=== PATIENT | female | born 1985 | race African-American/Black ===

== ENCOUNTER 2017-12-02 05:49 | Observation (INO) | payer MEDICAID ==
[~2017-12-02] VITALS: Ht 170.2 cm; Wt 86.6 kg
[2017-12-02 06:16] VITALS: BP 123/77
== END 2017-12-02 10:15 | disposition home or self-care (01) ==
LOC: 4S 05:49
PROVIDERS: ADMIT Obstetrics & Gynecology; ATTEND Obstetrics & Gynecology
DX: O26.853 Spotting complicating pregnancy, third trimester (principal); O21.2 Late vomiting of pregnancy; Z3A.36 36 weeks gestation of pregnancy
CPT/HCPCS: 59025; 76811; 80307 ×8; 80349; G0378

== ENCOUNTER 2017-12-16 02:24 | Inpatient (IN) | payer MEDICAID ==
[~2017-12-16] VITALS: Ht 170.2 cm; Wt 85.3 kg
[2017-12-16] MEDS ORDERED: OXYTOCIN 30 UNITS/LACT RINGERS 500 ML IV PRN (03:04)
[2017-12-16] MEDS ORDERED: RINGERS SOLUTION,LACTATED 1,000 ML IV PRN (03:04)
[2017-12-16] MEDS ORDERED: OXYTOCIN 20 UNITS/LACT RINGERS 1,000 ML IV ONE (03:04)
[2017-12-16] MEDS ORDERED: RINGERS SOLUTION,LACTATED 1,000 ML IV SCH (03:04)
[2017-12-16] MEDS ORDERED: FentaNYL CITRATE-PF 100 MCG/2 ML VIAL IVP PRN (03:15)
[2017-12-16] MEDS ORDERED: METOCLOPRAMIDE HCL 5 MG/ML 2 ML VIAL IVP PRN (03:15)
[2017-12-16] MEDS ORDERED: CITRIC ACID/SODIUM CITRATE 30 ML SOLUTION UDCUP PO PRN (03:15)
[2017-12-16] MEDS ORDERED: AMPICILLIN SODIUM 2 GM/NS 100 ML IV ONE (03:30)
[2017-12-16 03:33] LABS: BASOPHILS # (AUTO) 0.04 K/uL (0.00-0.20); BASOPHILS % (AUTO) 0.4 % (0.0-2.0); EOSINOPHILS % (AUTO) 0.87 % (1.0-6.0); HEMATOCRIT 38.4 % (36-46); HEMOGLOBIN 12.4 g/dL (12.0-16.0); LYMPHOCYTES # (AUTO) 2.1 K/uL (1.0-4.8); LYMPHOCYTES % (AUTO) 19.4 % (22.0-44.0); MEAN CORPUSCULAR HEMOGLOBIN 28.5 pg (26.0-34.0); MEAN CORPUSCULAR HGB CONC 32.4 G/dL (31.0-37.0); MEAN CORPUSCULAR VOLUME 88 fL (80-100); MONOCYTES # (AUTO) 0.7 K/uL (0.1-1.0); MONOCYTES % (AUTO) 6.6 % (2.0-9.0); NEUTROPHILS % (AUTO) 72.7 % (40.0-70.0); PLATELET COUNT (AUTO)-OB 445 K/uL (150-450); RED BLOOD CELL COUNT(AUTO) 4.37 MIL/uL (4.00-5.20); RED CELL DISTRIBUTION WIDTH 15.1 % (11.5-14.5)
[2017-12-16] MEDS ORDERED: ROPIVACAINE HCL 0.2% 100 ML ED ONE (03:45)
[2017-12-16] MEDS ORDERED: LIDOCAINE HCL/PF 2% 5 ML VIAL ONE (03:45)
[2017-12-16] MEDS ORDERED: FentaNYL/BUPIV 0.125%/NS/PF 200 ML ED PRN (04:06)
[2017-12-16] MEDS ORDERED: ONDANSETRON HCL 4 MG/2 ML VIAL IVP PRN (04:15)
[2017-12-16] MEDS ORDERED: DiphenhydrAMINE HCL 50 MG/ML VIAL IVP PRN (04:15)
[2017-12-16] MEDS ORDERED: NALBUPHINE HCL 10 MG/ML VIAL IVP PRN (04:15)
[2017-12-16 05:25] LABS: RUBELLA SCREEN (IGG) IMMUNE (IMMUNE)
[2017-12-16] MEDS ORDERED: OXYTOCIN 20 UNITS/LACT RINGERS 1,000 ML IV SCH (06:04)
[2017-12-16] MEDS ORDERED: MAGNESIUM HYDROXIDE SUSPENSION 30 ML UDCUP PO PRN (06:15)
[2017-12-16] MEDS ORDERED: MEASLES/MUMPS/RUBELLA VACCINE, LIVE 0.5 ML/VIAL SQ ONE (06:15)
[2017-12-16] MEDS ORDERED: LANOLIN 7 GM OINTMENT TP PRN (06:15)
[2017-12-16] MEDS ORDERED: GLYCERIN/WITCH HAZEL LEAF 40 PADS JAR TP PRN (06:15)
[2017-12-16] MEDS ORDERED: SENNA/DOCUSATE SODIUM 187-50 MG TABLET PO PRN (06:15)
[2017-12-16] MEDS ORDERED: BENZOCAINE 20%/MENTHOL 56 GM SPRAY CANISTER TP PRN (06:15)
[2017-12-16] MEDS ORDERED: AMPICILLIN SODIUM 1 GM/NS 50 ML IV SCH (07:30)
[2017-12-16 07:33] VITALS: BP 91/51
[2017-12-16] MEDS ORDERED: OXYGEN THERAPY IH SCH (08:00)
[2017-12-16] MEDS: IBUPROFEN 600 MG TABLET PO PRN ×2 (09:08→18:05)
[2017-12-16] MEDS ORDERED: INFLUENZA VIRUS VACCINE QVS 2017-18 (3YR+)/PF 60 MCG/0.5 ML SYRINGE IM ONE (10:15)
[2017-12-16] MEDS: ACETAMINOPHEN/CODEINE 300-30 MG TABLET PO PRN ×2 (14:28→19:45)
[2017-12-17] MEDS: IBUPROFEN 600 MG TABLET PO PRN ×2 (00:11→10:09)
[2017-12-17 07:13] LABS: BASOPHILS # (AUTO) 0.05 K/uL (0.00-0.20); BASOPHILS % (AUTO) 0.4 % (0.0-2.0); EOSINOPHILS # (AUTO) 0.21 K/uL (0.00-0.70); HEMATOCRIT 34.5 % (36-46); HEMOGLOBIN 11.2 g/dL (12.0-16.0); LYMPHOCYTES # (AUTO) 2.2 K/uL (1.0-4.8); LYMPHOCYTES % (AUTO) 18.4 % (22.0-44.0); MEAN CORPUSCULAR HEMOGLOBIN 28.9 pg (26.0-34.0); MEAN CORPUSCULAR HGB CONC 32.4 G/dL (31.0-37.0); MEAN CORPUSCULAR VOLUME 89 fL (80-100); MONOCYTES # (AUTO) 0.6 K/uL (0.1-1.0); MONOCYTES % (AUTO) 5.1 % (2.0-9.0); NEUTROPHILS % (AUTO) 74.4 % (40.0-70.0); PLATELET COUNT (AUTO)-OB 392 K/uL (150-450); RED BLOOD CELL COUNT(AUTO) 3.87 MIL/uL (4.00-5.20); RED CELL DISTRIBUTION WIDTH 15.2 % (11.5-14.5)
[2017-12-17] MEDS ORDERED: IBUP-2071 PO (09:01)
[2017-12-17] MEDS: ACETAMINOPHEN/CODEINE 300-30 MG TABLET PO PRN (12:49)
== END 2017-12-17 13:25 | disposition home or self-care (01) | DRG 560 ==
LOC: 4S 02:24 → OBSVTOIN 02:24
PROVIDERS: ADMIT Obstetrics & Gynecology; ATTEND Obstetrics & Gynecology
PROC: 10E0XZZ Delivery of Products of Conception, External Approach (ICD-10-PCS; principal; 2017-12-16)
PROC: 3E0R3BZ Introduction of Anesthetic Agent into Spinal Canal, Percutaneous Approach (ICD-10-PCS; 2017-12-16)
PROC: 00HU33Z Insertion of Infusion Device into Spinal Canal, Percutaneous Approach (ICD-10-PCS; 2017-12-16)
PROC: 3E0234Z Introduction of Serum, Toxoid and Vaccine into Muscle, Percutaneous Approach (ICD-10-PCS; 2017-12-16)
DX: O69.81X0 Labor and delivery complicated by cord around neck, without compression, not applicable or unspecified (principal); O77.0 Labor and delivery complicated by meconium in amniotic fluid; Z37.0 Single live birth; Z3A.38 38 weeks gestation of pregnancy; Z23 Encounter for immunization
CPT/HCPCS: 80307; 80349; 86592; 86762; 86850; 86900; 86901; 87340; 89060; 90471; J0290; J2795; J3490; J7120